=== PATIENT | male | born 1985 | race African-American/Black ===

== ENCOUNTER 2021-01-21 15:39 | Emergency (ER) | payer SELFPAY ==
[2021-01-21 15:58] VITALS: TEMP 99.3; BMI 34.8
[2021-01-21 18:52] VITALS: BP 138/78; PULSE 73
== END 2021-01-21 18:52 | disposition left against medical advice (07) ==
LOC: JER 15:39
DX: T50.901A Poisoning by unspecified drugs, medicaments and biological substances, accidental (unintentional), initial encounter (principal)
CPT/HCPCS: 93005; 93010; 99284-25